=== PATIENT | female | born 1950 | race Caucasian/White ===

== ENCOUNTER → 2016-10-28 | Outpatient (CLI) | payer OTHER ==
--- NOTE | 2016-10-28 11:06 | REP ---
BILATERAL MAMMOGRAM, BASELINE STUDY: Baseline mammogram performed in the MLO and CC projections. The breast parenchyma is moderately dense, somewhat limiting the sensitivity of the mammogram. 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 This measures approximately 1.4 cm in diameter. At about the 6-o'clock position, there are tiny calcifications for which magnification views are recommended. Other tiny calcifications are seen more posteriorly and centrally in the right breast and magnification views are also recommended for those calcifications. In the left breast, possible 6 mm nodular density is seen laterally only on the left CC view. I see no other evidence of mass or clustered microcalcifications bilaterally. IMPRESSION: ACR 0 incomplete. Tiny calcifications seen in the right breast as discussed in detail above. Magnification views are recommended to further evaluation. Possible 6 mm nodular density lateral left breast seen only on the CC view. Recommend spot compression view of the left breast in the CC projection. Other views and ultrasound may also be necessary. BI-RADS/ACR category 0 mammogram, incomplete. Additional imaging and/or prior images are needed before a final assessment can be assigned. This mammogram was interpreted with the aid of an FDA-approved computer-aided detection system. A. Negative x-ray reports should not delay biopsy if a dominant or clinically suspicious mass is present. B. Four to eight percent of cancers are not identified by x-ray. C. Adenosis and dense breasts may obscure an underlying neoplasm. The patient states that she/he has not had a clinical breast exam in over a year. The patient letter being requested is M0. Signed by Shekhar Ramsey MD 10/28/2016 12:58 P
== END ==
LOC: M RAD 09:32
PROVIDERS: ATTEND Family Medicine
DX: Z12.31 Encounter for screening mammogram for malignant neoplasm of breast (principal); R92.0 Mammographic microcalcification found on diagnostic imaging of breast

== ENCOUNTER 2017-11-11 13:49 | Emergency (ER) | payer MEDICARE, OTHER | END 2017-11-11 16:21 | disposition home or self-care (01) | LOC: M ED 13:49 | DX: S01.01XA Laceration without foreign body of scalp, initial encounter (principal); W05.0XXA Fall from non-moving wheelchair, initial encounter; Y92.099 Unspecified place in other non-institutional residence as the place of occurrence of the external cause; Y93.89 Activity, other specified; D49.89 Neoplasm of unspecified behavior of other specified sites; G91.9 Hydrocephalus, unspecified; Z98.2 Presence of cerebrospinal fluid drainage device; F17.200 Nicotine dependence, unspecified, uncomplicated; Z88.2 Allergy status to sulfonamides | CPT/HCPCS: 70450 ==

== ENCOUNTER → 2017-12-16 | Outpatient (CLI) | payer MEDICARE, OTHER | LOC: M RAD 10:06 | DX: Z12.31 Encounter for screening mammogram for malignant neoplasm of breast (principal) | CPT/HCPCS: 77067 ==

== ENCOUNTER → 2018-04-08 | Outpatient (REF) | LOC: M LAB REF 10:54 | DX: C34.11 Malignant neoplasm of upper lobe, right bronchus or lung (principal); J44.9 Chronic obstructive pulmonary disease, unspecified; F32.9 Major depressive disorder, single episode, unspecified; I10 Essential (primary) hypertension; E11.9 Type 2 diabetes mellitus without complications ==

== ENCOUNTER → 2018-04-15 | Outpatient (REF) | LOC: M LAB REF 16:12 | DX: Z00.00 Encounter for general adult medical examination without abnormal findings (principal) ==

== ENCOUNTER → 2018-04-17 | Outpatient (REF) | payer MEDICARE, OTHER ==
[2018-04-17 20:01] LABS: APPEARANCE, URINE CLOUDY (CLEAR); BACTERIA, URINE AUTO 3+ (NEGATIVE); BILIRUBIN, URINE AUTO NEGATIVE (NEGATIVE); BLOOD, URINE BLOOD 2+ (NEGATIVE); COLOR, URINE YELLOW (YELLOW); GLUCOSE, URINE (UA) AUTO NEGATIVE (NEGATIVE); KETONE, URINE AUTO NEGATIVE (NEGATIVE); LEUKOCYTE ESTERASE, URINE AUTO 3+ (NEGATIVE); NITRITE, URINE AUTO POSITIVE (NEGATIVE); PROTEIN, URINE AUTO 1+ mg/dL (NEGATIVE); RBC, URINE AUTO 76 /HPF (0-3); SPECIFIC GRAVITY URINE AUTO 1.018 (1.002-1.035); SQUAMOUS EPITHELIAL CELL UR AU 1 /HPF (0-6); UROBILINOGEN, URINE AUTO 0.2 mg/dL (0.0-2.0); WBC, URINE AUTO 158 /HPF (0-3)
== END ==
LOC: M LAB REF 17:15
DX: Z86.14 Personal history of Methicillin resistant Staphylococcus aureus infection (principal)

== ENCOUNTER → 2018-04-22 | Outpatient (REF) | payer MEDICARE, OTHER ==
[2018-04-22 19:45] LABS: AMORPHOUS SEDIMENT SMALL (NEGATIVE); APPEARANCE, URINE CLOUDY (CLEAR); BACTERIA, URINE AUTO 3+ (NEGATIVE); BILIRUBIN, URINE AUTO NEGATIVE (NEGATIVE); BLOOD, URINE BLOOD NEGATIVE (NEGATIVE); COLOR, URINE YELLOW (YELLOW); GLUCOSE, URINE (UA) AUTO NEGATIVE (NEGATIVE); KETONE, URINE AUTO NEGATIVE (NEGATIVE); LEUKOCYTE ESTERASE, URINE AUTO 3+ (NEGATIVE); NITRITE, URINE AUTO POSITIVE (NEGATIVE); PROTEIN, URINE AUTO 1+ mg/dL (NEGATIVE); RBC, URINE AUTO 13 /HPF (0-3); SPECIFIC GRAVITY URINE AUTO 1.017 (1.002-1.035); SQUAMOUS EPITHELIAL CELL UR AU 1 /HPF (0-6); UROBILINOGEN, URINE AUTO 0.2 mg/dL (0.0-2.0); WBC, URINE AUTO 50 /HPF (0-3)
== END ==
LOC: M LAB REF 18:40
DX: N32.89 Other specified disorders of bladder (principal); J44.9 Chronic obstructive pulmonary disease, unspecified; I10 Essential (primary) hypertension; E11.9 Type 2 diabetes mellitus without complications; C34.11 Malignant neoplasm of upper lobe, right bronchus or lung; Z86.14 Personal history of Methicillin resistant Staphylococcus aureus infection
CPT/HCPCS: 81001

== ENCOUNTER → 2018-05-13 | Outpatient (REF) ==
[2018-05-13 12:28] LABS: APPEARANCE, URINE HAZY (CLEAR); BACTERIA, URINE AUTO 1+ (NEGATIVE); BILIRUBIN, URINE AUTO NEGATIVE (NEGATIVE); BLOOD, URINE BLOOD NEGATIVE (NEGATIVE); COLOR, URINE YELLOW (YELLOW); GLUCOSE, URINE (UA) AUTO 3+ mg/dL (NEGATIVE); KETONE, URINE AUTO NEGATIVE (NEGATIVE); LEUKOCYTE ESTERASE, URINE AUTO 2+ (NEGATIVE); NITRITE, URINE AUTO NEGATIVE (NEGATIVE); PROTEIN, URINE AUTO NEGATIVE (NEGATIVE); RBC, URINE AUTO 3 /HPF (0-3); SPECIFIC GRAVITY URINE AUTO 1.015 (1.002-1.035); SQUAMOUS EPITHELIAL CELL UR AU 1 /HPF (0-6); UROBILINOGEN, URINE AUTO 0.2 mg/dL (0.0-2.0); WBC, URINE AUTO 87 /HPF (0-3)
== END ==
LOC: M LAB REF 11:41
DX: C34.90 Malignant neoplasm of unspecified part of unspecified bronchus or lung (principal)

== ENCOUNTER 2019-07-16 09:03 | Emergency (ER) | payer MEDICARE, OTHER ==
[~2019-07-16] VITALS: Ht 167.6 cm; Wt 102.3 kg
[2019-07-16] MEDS ORDERED: LANTINJ4 SC (09:35)
[2019-07-16] MEDS ORDERED: LISI40TA PO (09:35)
[2019-07-16] MEDS ORDERED: TROS20TA3 PO (09:35)
[2019-07-16] MEDS ORDERED: CLON0.5T2 PO (09:35)
[2019-07-16] MEDS ORDERED: FERR32TA PO (09:35)
[2019-07-16] MEDS ORDERED: MECL-86 PO (09:35)
[2019-07-16] MEDS ORDERED: ESCI5SOL3 PO (09:35)
[2019-07-16] MEDS ORDERED: TAB-TAB PO (09:35)
[2019-07-16] MEDS ORDERED: SPIR1CAP INH (09:35)
[2019-07-16] MEDS ORDERED: D3400TAB PO (09:35)
[2019-07-16] MEDS ORDERED: ATOR40TA75 PO (09:35)
[2019-07-16] MEDS ORDERED: LISI-538 PO (09:35)
[2019-07-16] MEDS ORDERED: MELO15TA28 PO (09:35)
[2019-07-16] MEDS ORDERED: TRAM50TA2 PO (09:35)
[2019-07-16] MEDS ORDERED: INSUH10VL SC (09:35)
[2019-07-16] MEDS ORDERED: SPIR-10 PO (09:35)
[2019-07-16] MEDS ORDERED: ACET650T15 PO (09:35)
[2019-07-16] MEDS ORDERED: BACL1TAB9 PO (09:35)
[2019-07-16] MEDS ORDERED: BUPR200T PO (09:35)
[2019-07-16] MEDS ORDERED: METF500T13 PO (09:35)
--- NOTE | 2019-07-16 10:15 | REP ---
CT cervical spine: 07/16/2019. Indication: Cervical spine trauma. Comparison: None. Technique: Unenhanced axial CT images of the cervical spine were obtained with coronal and sagittal reconstructions provided. Findings: There is no acute fracture, subluxation or dislocation. Reversal of the cervical lordosis is noted. Multilevel level and a listhesis is present most pronounced at C4/C5, C5/C6 and C6/C7. There is no hemorrhage within the spinal canal detected. Impression: No acute osseous injury of the cervical spine. Electronically Signed by Didier Dye DO 07/16/2019 10:07 A
--- NOTE | 2019-07-16 11:11 | REP ---
Clinical: Trauma. Technique: Frontal view of the pelvis with neutral and frog lateral views of the right hip. Findings: Age-related degenerative changes are appreciated to the pelvis and hips. No acute fracture or dislocation. Impression: No acute fracture or dislocation. Electronically Signed by Derick Prater MD 07/16/2019 11:03 A
--- NOTE | 2019-07-16 11:12 | REP ---
Clinical: Trauma. Technique: AP, lateral, bilateral oblique views of the right ankle. Findings: Age-related degenerative changes are appreciated. No acute fracture or dislocation. Ankle mortise appears intact. No subcutaneous emphysema or radiodense foreign body. Impression: Degenerative changes. No acute fracture or dislocation. Electronically Signed by Derick Prater MD 07/16/2019 11:03 A
[2019-07-16 14:13] VITALS: BP 133/61
== END 2019-07-16 14:53 | disposition home or self-care (01) ==
LOC: EDBD 09:03 → M ED 09:03
DX: S70.02XA Contusion of left hip, initial encounter (principal); S93.402A Sprain of unspecified ligament of left ankle, initial encounter; W18.39XA Other fall on same level, initial encounter; Y92.018 Other place in single-family (private) house as the place of occurrence of the external cause; E11.9 Type 2 diabetes mellitus without complications; I10 Essential (primary) hypertension; J44.9 Chronic obstructive pulmonary disease, unspecified; E78.9 Disorder of lipoprotein metabolism, unspecified; G47.30 Sleep apnea, unspecified; Z79.899 Other long term (current) drug therapy; Z79.4 Long term (current) use of insulin; Z88.1 Allergy status to other antibiotic agents; Z88.2 Allergy status to sulfonamides